=== PATIENT | female | born 1955 | race Caucasian/White ===

== ENCOUNTER 2017-07-13 10:24 | Inpatient (IN) | payer BC ==
--- NOTE | 2017-07-07 11:49 | History and Physical ---
History & Physical Date & Time of Service: Jul 07, 2017 at 11:39 Chief Complaint: Left Knee Osteoarthritis Primary Care Physician: Deloris Iniguez PA-C History of Present Illness Source: patient Aisha is a pleasant 61-year-old female who presents for preoperative evaluation prior to a left knee replacement. Patient states that they have been having pain in this knee for many years now, which has gradually worsened, it has now gotten to the point it is affecting her daily activities including walking, standing, going up and down steps. Patient has tried and failed conservative measures including previous cortisone injection, viscosupplementation, and PO NSAIDs with no relief. At this point in time, patient has failed conservative measures and would like to proceed with a left knee replacement. Past Medical/Surgical History PAST MEDICAL HISTORY: 1. Hypertension. 2. Hypercholesterolemia. PAST SURGICAL HISTORY: 1. Breast biopsy. 2. Tonsillectomy. 3. Ovarian cyst. 4. Left knee arthroscopy. 5. Cholecystectomy. Immunizations History of Influenza Vaccine: Yes Influenza Vaccine Date: Sep 23, 2008 History of Tetanus Vaccine?: Yes Tetanus Immunization Date: Dec 24, 2004 History of Pneumococcal: No History of Hepatitis B Vaccine: No Allergies Coded Allergies: Hydrocodone (Unverified Allergy, Unknown, UNKNOWN RXN, 01/03/10) Latex1 -Allergic Contact Dermititis (Unverified Allergy, Unknown, UNKNOWN , 12/24/08) Uncoded Allergies: ADHESIVE TAPE (Allergy, Unknown, UNKNOWN RXN, 12/24/08) Home Medications Scheduled Ascorbic Acid (Vitamin C *), 500 MG PO DAILY Atenolol (Tenormin), 25 MG PO HS Calcium/Vitamin D (Os-Beni 500 Plus D), 1 TAB PO DAILY Fish Oil ([place]-3), 1 CAP PO TID Multivitamin (Multivitamin), 1 TAB PO DAILY Quinapril Hcl (Accupril *), 20 MG PO DAILY Simvastatin (Zocor), 20 MG PO QPM Review of Systems Constitutional: No fever, No chills, No sweats, No weight loss, No weakness, No fatigue, No problem reported Eyes: No worsening of vision, No eye pain, No redness, No discharge, No diplopia, No problem reported ENT: No hearing loss, No unusual epistaxis, No nasal symptoms, No sore throat, No tinnitus, No dental problems, No trouble swallowing, No problem reported Respiratory: No cough, No sputum, No wheezing, No shortness of breath, No dyspnea on exertion, No dyspnea at rest, No hemoptysis, No problem reported Cardiovascular: No chest pain, No orthopnea, No PND, No edema, No claudication , No palpitations, No problem reported Abdomen: No pain, No nausea, No vomiting, No diarrhea, No constipation, No GI bleeding, No problem reported Physical Exam General Appearance: WD/WN, no apparent distress Head: normocephalic, atraumatic Eyes: normal inspection, PERRL ENT: normal ENT inspection Neck: supple Respiratory/Chest: chest non-tender, lungs clear Cardiovascular: regular rate, rhythm, no edema Abdomen/GI: normal bowel sounds, non tender Physical Exam Exam Findings Details Knee ROM L * Active ROM - Flexion: 125 degrees, Extension: 5 degrees, Factors: pain, Description: active painful range of motion. Knee ROM R * Active ROM - Flexion: 125 degrees, Extension: 5 degrees, Strength LE Normal Strength Description - Normal lower extremity: Bilateral. Knee * Inspection - Gait: antalgic. Alignment - Right: neutral, Left: neutral. Ecchymosis - Right: negative, Left: negative. Effusion - Right: mild, Left: mild. Swelling - Right: mild, Left: mild. Flexibility - Right: normal, Left: normal. Maximum tenderness - Right: medial joint line, lateral joint line, patella, Left: medial joint line, lateral joint line, patella. Patella exam - Crepitation - Right: mild, Left: mild. Patella position - Right: neutral, Left: neutral. Tilt - Right: equal, Left: equal. Diane's - lateral - Right: Positive, Left: Positive. Diane's - medial - Right: Positive, Left: Positive. Knee Comments No calf tenderness Knee Normal Inspection - Atrophy - Right: Absent, Left: Absent. Skin - Right: Normal, Left: Normal. Patella exam - Apprehension - Right: Negative, Left: Negative. Q-angle - Right: Normal, Left: Normal. Mode's - Right: Negative, Left: Negative. Posterior drawer - Right: Negative, Left: Negative. Anterior drawer - Right: Negative, Left: Negative. Valgus stress - Right: Negative, Left : Negative. Varus stress - Right: Negative, Left: Negative. Extensor lag - Right : Normal, Left: Normal. Neurovascular LE Normal Neurovascular examination including reflexes, sensation , and pulses is within normal limits. Knee X-Ray: Xrays reviewed of the left knee showing findings consistent with degenerative joint disease including joint space narrowing, subchondral sclerosis and peripheral osteophyte formation. no acute bony pathology, overall valgus alignment. Impression: degenerative joint disease of the left knee with no acute bony pathology noted. Impression Assessment and Plan Left Knee DJD Further care discussed with patient and at this point in time has failed conservative measures and would like to proceed with a left total knee replacement. Plan on discharge will be home with outpatient physical therapy. DVT prophalaxis with TEDs, SCDs and will also place on aspirin 81 mg p.o. b.i.d. for a month postop. Patient will have follow up appointment in our office two weeks post op for staple/suture removal and re-evaluation. Patient otherwise has no other questions or concerns.
[2017-07-08 13:57] VITALS: BMI 40.0
--- NOTE | 2017-07-08 14:29 | PAT Medication Instructions ---
Service Date Jul 08, 2017. Current Home Medication List Acetaminophen (Tylenol), 1,000 MG PO TID PRN for RN Arnica (Arnica Tincture), 1 DOSE TOP QAM Ascorbic Acid (Vitamin C), 500 MG PO QAM Atenolol (Tenormin), 50 MG PO QPM Fish Oil ([place]-3), 2 CAP PO BID Homeopathic Products (Arnica [place]), 2 TAB SL BD Hydrochlorothiazide (Hydrochlorothiazide), 1 TAB PO QAM Multivitamin (Multivitamin), 1 TAB PO QAM Probiotic Product (Probiotic), 1 TAB PO PRN Quinapril Hcl (Accupril), 40 MG PO QPM Simvastatin (Zocor), 40 MG PO QPM Turmeric (Curcuma Longa) (Turmeric Curcumin), 500 MG PO QAM Medication Instructions For Your Scheduled Surgery - Hold the following medications as of 07/08/17: Turmeric (Curcuma Longa) (Turmeric Curcumin), 500 MG PO QAM Fish Oil ([place]-3), 2 CAP PO BID Arnica (Arnica Tincture), 1 DOSE TOP QAM Homeopathic Products (Arnica [place]), 2 TAB SL BD - Hold the following medications 24 hours prior to surgery: Quinapril Hcl (Accupril), 40 MG PO QPM - Hold the following medications the morning of surgery: Ascorbic Acid (Vitamin C), 500 MG PO QAM Hydrochlorothiazide (Hydrochlorothiazide), 1 TAB PO QAM Multivitamin (Multivitamin), 1 TAB PO QAM Probiotic Product (Probiotic), 1 TAB PO PRN - Take the following medications the morning of surgery with a sip of water OTHERWISE NOHING TO EAT OR DRINK AFTER MIDNIGHT: Acetaminophen (Tylenol), 1,000 MG PO TID PRN (may take if needed up to 4 hours prior to surgey) - Take the following medications as scheduled the night before surgery: Atenolol (Tenormin), 50 MG PO QPM Simvastatin (Zocor), 40 MG PO QPM Acetaminophen (Tylenol), 1,000 MG PO TID PRN for RN If you have any questions please call us at [phone] or [phone] or [phone]
--- NOTE | 2017-07-08 15:13 | DIAGNOSTIC IMAGING REPORT ---
CHEST 2 VIEWS ROUTINE HISTORY: 61 years-old Female preadmission exam. COMPARISON: None available TECHNIQUE: Frontal and lateral views of the chest. FINDINGS: Calcine mediastinal nodes are seen. There is atherosclerosis of the aorta. Cardiac silhouette is within normal limits. No pneumothorax, pleural effusion or focal airspace consolidation. End plate spurring is seen throughout the spine.] Cholecystectomy clips are noted. IMPRESSION: No acute cardiopulmonary process. The above report was generated using voice recognition software. It may contain grammatical, syntax or spelling errors. Electronically signed by: Cordell Zee M.D. 07/08/2017 3:12 PM Dictated Date/Time: 07/08/2017 3:10 PM
[2017-07-08 15:28] LABS: BASO % 0.4 %; BASO ABS # 0.03 K/uL (0-0.2); COMPLETE YES; EOS % 1.5 %; HEMATOCRIT 42.1 % (37-47); IG% 0.4 %; LYMPH % 27.1 %; LYMPH ABS # 2.15 K/uL (1.2-3.4); MEAN CELL VOLUME 82.2 fL (80-100); MEAN CORPUSCULAR HEMOGLOBIN 27.3 pg (25-34); MEAN CORPUSCULAR HGB CONC 33.3 g/dl (32-36); MEAN PLATELET VOLUME 11.2 fL (7.4-10.4); MONO % 7.1 %; NEUT % 63.5 %; PLATELET COUNT 163 K/uL (130-400); RED BLOOD COUNT 5.12 M/uL (4.2-5.4); WHITE BLOOD COUNT 7.93 K/uL (4.8-10.8)
[2017-07-08 15:30] LABS: URINE APPEARANCE CLEAR (CLEAR); URINE BILIRUBIN NEG (NEG); URINE COLOR YELLOW; URINE EPITHELIAL CELL AUTO >30 /lpf (0-5); URINE NITRITE NEG (NEG); URINE PH 5.5 (4.5-7.5); URINE SPECIFIC GRAVITY 1.013 (1.000-1.030); UROBILINOGEN NEG (NEG)
[2017-07-08 15:32] LABS: MANUAL MICROSCOPIC REQUIRED? NO; REVIEW REQ? NO
[2017-07-08 15:38] LABS: PARTIAL THROMBOPLASTIN RATIO 1.1; PROTHROMBIN TIME (PATIENT) 10.6 SECONDS (9.0-12.0)
[2017-07-09 07:21] LABS: ESTIMATED AVERAGE GLUCOSE 117 mg/dl; HA1C FLAG Normal (Normal)
[2017-07-13] VITALS (7 sets, daily range): BP systolic 102–135; BP diastolic 64–84; PULSE 66–76; TEMP 36.4–36.8; O2SAT 97–99; Ht 170.2 cm; Wt 115.9 kg
[~2017-07-13] VITALS: Ht 170.2 cm; Wt 115.9 kg
[2017-07-13] MEDS: TRANEXAMIC ACID INJ 1,000 MG in SODIUM CHLORIDE 0.9% 100ML 100 ML IV SCH ×2 (06:00→06:30)
[~2017-07-13 10:24] MED LIST: ACET-1256 PO; ACETAMINOPHEN 500 MG TAB PO SCH; ARNI20TI TOP; ASCO1CAP3 PO; ATEN50TA8 PO; CEFAZOLIN 2000 MG/60 ML D5W 60 ML IV SCH; CeleBREX 200 MG CAP PO SCH; DEXAMETHASONE 4 MG TAB PO SCH; FAMOTIDINE 20 MG TAB PO SCH; GABAPENTIN 300 MG CAP PO SCH; HYDR12.55 PO; LACTATED RINGER'S 1000ML 1,000 ML IV SCH; LACTATED RINGER'S 1000ML 500 ML IV ONE; METOCLOPRAMIDE HCL 10 MG TAB PO SCH; MULT-506 PO; OMEG10007 PO; OXYCODONE HCL 10 MG TABCR (OXYCONTIN) PO SCH; PROB1TAB16 PO; QUIN40TA18 PO; ROPIVACAINE 5MG/ML 30 ML 150 MG, BUPIVACAINE/EPINEPHR 0.5% MPF 30 ML, KETOROLAC TROMETH... INFIL SCH; SIMV40TA2 PO; TURM1CAP PO; [UNRECOGNIZED DRUG - CODE] SL
[2017-07-13] MEDS ORDERED: BUPIVACAINE 0.25% 30 ML VIAL ONE (10:28)
[2017-07-13] MEDS ORDERED: BUPIVACAINE 0.5 % 5 MG/1 ML PF 10ML VIAL ONE (10:38)
--- NOTE | 2017-07-13 11:02 | History & Physical Bridge Note ---
H&P Re-Evaluation Bridge Note: I have examined the patient, reviewed the History & Physical and in the interval since the performance of the History & Physical I have noted the following changes of clinical significance: No changes noted
[2017-07-13] MEDS ORDERED: MIDAZOLAM HCL 1 MG/ML 2ML VIAL ONE ×2 (12:25)
[2017-07-13] MEDS ORDERED: FENTANYL CITRATE INJ 50 MCG/1 ML 2 ML VIAL ONE (12:25)
[2017-07-13] MEDS ORDERED: BACITRACIN 50000 UNIT VIAL ONE (12:38)
[2017-07-13] MEDS ORDERED: ORTHO JOINT ANESTHETIC ONE (12:38)
[2017-07-13] MEDS ORDERED: POVIDONE-IODINE OP SOLN 30 ML BTL ONE (12:38)
[2017-07-13] MEDS ORDERED: HYDROmorphone INJ 2 MG/ML SYR/VIAL IV PRN (13:30)
[2017-07-13] MEDS ORDERED: EpHEDrine SULFATE INJ 50 MG/ML AMP IV PRN (13:30)
[2017-07-13] MEDS ORDERED: ATROPINE SULFATE 0.1 MG/ML 5ML SYR IV PRN (13:30)
[2017-07-13] MEDS ORDERED: PHENYLEPHRINE 100MCG/ML 5ML SYR IV PRN (13:30)
[2017-07-13] MEDS ORDERED: ONDANSETRON INJ 2 MG/ML 2 ML VIAL IV PRN ×2 (13:30→15:00)
[2017-07-13] MEDS ORDERED: KETOROLAC TROMETHAMINE 30 MG/ML VIAL IV. PRN ×2 (13:30→15:00)
[2017-07-13] MEDS ORDERED: LIDOCAINE HCL 2% 2 ML VIAL (20MG/ML) ONE (13:53)
[2017-07-13] MEDS ORDERED: PROPOFOL IV EMULSION 10 MG/ML 20 ML VIAL IV ONE (13:53)
[2017-07-13] MEDS ORDERED: OXYCODONE HCL IR 5 MG TAB (IMMEDIATE RELEASE) PO PRN (15:00)
[2017-07-13] MEDS ORDERED: ZOLPIDEM TARTRATE 5 MG TAB PO PRN (15:00)
[2017-07-13] MEDS ORDERED: MoRPHine SULFATE 2 MG/ML CARP IV PRN (15:00)
[2017-07-13] MEDS ORDERED: BISACODYL 10 MG SUPP PR PRN (15:00)
[2017-07-13] MEDS ORDERED: SOD PHOSPHATE/SOD BIPHOSPHATE ENEMA 132 ML BTL PR PRN (15:00)
[2017-07-13] MEDS ORDERED: ALUMINUM/MAGNESIUM/SIMETH (MAALOX MAX) 30 ML UDC PO PRN (15:00)
[2017-07-13] MEDS ORDERED: MAGNESIUM HYDROXIDE SUSP 30 ML UDC PO PRN (15:00)
[2017-07-13] MEDS ORDERED: MoRPHine SULFATE 4 MG/ML 1 ML CARP\\VIAL IV PRN (15:30)
[2017-07-13] MEDS ORDERED: MoRPHine SULFATE 10 MG/ML CARP/VIAL IV PRN (15:30)
--- NOTE | 2017-07-13 15:36 | DIAGNOSTIC IMAGING REPORT ---
LEFT KNEE 1 OR 2 VIEWS ROUTINE CLINICAL HISTORY: Osteoarthritis. Postoperative study COMPARISON: None. DISCUSSION: There are postsurgical changes of a total left knee arthroplasty and patellar resurfacing. The femoral and tibial components appear well seated. Overlying skin steffen and surgical drains are evident. There is air within soft tissues consistent with recent surgery IMPRESSION: Postsurgical changes of a total left knee arthroplasty. Electronically signed by: Eulogio Moore M.D. 07/13/2017 3:35 PM Dictated Date/Time: 07/13/2017 3:34 PM
[2017-07-13] MEDS: D5W AND 1/2NSS + 20MEQ KCL 1,000 ML IV SCH (16:56)
--- NOTE | 2017-07-13 18:27 | [facility] Operative Report ---
Operative Report Operative Date Jul 13, 2017. Pre-Operative Diagnosis Left Knee Degenerative Joint Disease Post-Operative Diagnosis Same as preop Procedure(s) Performed Left Total Knee Arthroplasty using Kerr & Nephew journey 2 nonlocked total knee arthroplasty size 6 femur 5 tibia 11 Luann [address] Watson Care Process Manager Surgeon(s) Aman Fulton PA-C Estimated Blood Loss 5cc Findings Severe end-stage tricompartmental degenerative joint disease left knee Specimens A. Left Knee Bone and Tissue Complication(s) None Disposition Recovery Room / PACU Indications Patient still tends to conservative management including physical therapy anti- inflammatories relative rest activity modification interarticular corticosteroid and viscous supplementation injections presents for total knee Orthoplast after thorough discussion regarding risk and obligations Description of Procedure After proper prepping and draping of the left lower extremity anterior midline incision was made over the region of the extensor extensor mechanism after meticulous hemostasis was obtained and maintained in subcutaneous tissues a medial parapatellar incision was made The patella was subluxed lateralward the medial lateral gutter were cleaned from any hypertrophic synovitis and scar tissue of the distal femoral block was placed and the distal femoral osteotomy cut was made subsequently the chamfers anterior and posterior osteotomy cuts were made utilizing the 4-in-1 block the tibia was subsequently subluxed anteriorward medial and ateral meniscal remnants were excised in their entirety remnants of the anterior and posterior cruciate ligaments were excised in their entirety excellent exposure of the proximal tibia was obtained the tibial osteotomy guide was placed on the proximal tibial osteotomy cut was made once again the knee was irrigated with copious amounts of sterile saline solution the patella was subsequently everted lateralward thickened scar tissue around the patella was removed the patella was subsequently cut utilizing a freehand technique and was drilled prepared for final preparation and placement of patella socially flexion-extension gaps were checked and the equal and symmetric trials were placed to the appropriate femoral and tibial trials with poly-spacer being placed for equal flexion and extension gaps and full range of motion including extension to 0 and flexion to 140 the trial components after having been taken to recovery range of motion was subsequently removed meticulous hemostasis was obtained and maintained subsequently a knee block injection of joint cocktail including ropivacaine 0.5% 150 mg. Bupivacaine 0.5 % epinephrine 1-200,030 mL's toradol 30 mg dexamethasone 4 mg ketamine 10 mg clonidine 100 micrograms normal saline solution 30 mg was infiltrated into the soft tissues of the posterior knee medial lateral gutters and periosteal synovium special attention was paid to protect neurovascular structures at all times subsequently trial components having been removed the knee was irrigated with sterile saline solution. debris was removed the proximal tibia was subsequently prepared and was made ready for the placement of the tibial component tibial component was also cemented and tamped into position the femoral component was subsequently placed and cemented in the position the patellar component was subsequently cemented in position because hemostasis once again obtained and maintained wound having been thoroughly irrigated with debridement and debridement lavage was performed as well as a medial parapatellar incision closed with #1 Vicryl in interrupted fashion subcutaneous was closed with #2 Vicryl skin was closed with skin clips. PA-C was necessary for prepping and drapping as well as wound closure of deep fascia Sub cutaneous tissue and skin and was necessary for the case. A sterile compressive dressing was placed patient was taken to recovery in stable condition of report dictated by Walter I attest to the content of the Intraoperative Record and any orders documented therein. Any exceptions are noted below. I attest to the content of the Intraoperative Record and any orders documented therein. Any exceptions are noted below.
--- NOTE | 2017-07-13 18:28 | Anesthesiology Progress Note ---
Anesthesia Post Op Note Date & Time Jul 13, 2017 at 15:52 Vital Signs Pain Intensity: 0 Vital Signs Past 12 Hours Date Time Temp Pulse Resp B/P (MAP) Pulse Ox O2 Delivery O2 Flow Rate FiO2 07/13/17 14:59 36.1 85 18 104/61 99 Mask 10 07/13/17 11:19 36.7 73 18 128/64 97 Room Air Notes Mental Status: alert / awake / arousable, participated in evaluation Pt Amnestic to Procedure: Yes Nausea / Vomiting: adequately controlled Pain: adequately controlled Airway Patency, RR, SpO2: stable & adequate BP & HR: stable & adequate Hydration State: stable & adequate Anesthetic Complications: no major complications apparent
[2017-07-13] MEDS: DOCUSATE SODIUM 100 MG CAP PO SCH (20:43)
[2017-07-13] MEDS: ASPIRIN 81 MG ECTAB PO SCH (20:43)
[2017-07-13] MEDS: SENNA 8.6 MG TAB PO SCH (20:44)
[2017-07-13] MEDS: SIMVASTATIN 40 MG TAB PO SCH (20:44)
[2017-07-13] MEDS: OXYCODONE HCL 10 MG TABCR (OXYCONTIN) PO SCH (20:47)
[2017-07-13] MEDS: CEFAZOLIN IV 2,000 MG in DEXTROSE 5% 50ML 50 ML IV SCH (22:05)
[2017-07-13] MEDS: ACETAMINOPHEN 500 MG TAB PO SCH (22:05)
[2017-07-14] VITALS (7 sets, daily range): BP systolic 104–129; BP diastolic 68–85; PULSE 65–74; TEMP 36.5–36.9; O2SAT 95–99
[2017-07-14] MEDS: D5W AND 1/2NSS + 20MEQ KCL 1,000 ML IV SCH ×2 (03:01→13:00)
[2017-07-14] MEDS: ACETAMINOPHEN 500 MG TAB PO SCH ×3 (05:15→22:00)
[2017-07-14] MEDS: CEFAZOLIN IV 2,000 MG in DEXTROSE 5% 50ML 50 ML IV SCH (05:15)
[2017-07-14 06:58] LABS: HEMATOCRIT 33.3 % (37-47); MEAN CELL VOLUME 80.4 fL (80-100); MEAN CORPUSCULAR HEMOGLOBIN 27.5 pg (25-34); MEAN CORPUSCULAR HGB CONC 34.2 g/dl (32-36); MEAN PLATELET VOLUME 10.3 fL (7.4-10.4); PLATELET COUNT 138 K/uL (130-400); RED BLOOD COUNT 4.14 M/uL (4.2-5.4); WHITE BLOOD COUNT 15.19 K/uL (4.8-10.8)
[2017-07-14 07:07] LABS: PROTHROMBIN TIME (PATIENT) 11.1 SECONDS (9.0-12.0)
[2017-07-14 07:25] LABS: BUN/CREATININE RATIO 19.1 (10-20); CALCIUM 8.6 mg/dl (8.5-10.1); CREATININE 1.4 mg/dl (0.60-1.20); POTASSIUM 4.4 mmol/L (3.5-5.1)
--- NOTE | 2017-07-14 07:32 | Orthopedic Progress Note ---
Orthopedic Progress Note Date of Service Jul 14, 2017. Subjective Post OP Day: 1 (s/p Left TKA) Reports: feeling well, pain controlled w PO medications, Denies: complaints, chest pain, SOB, nausea / vomiting, light headedness, calf pain Objective calves soft nontender, N/V intact, capillary refill less than 2 sec., dressing C /D/I, A&O x3, toes mobile, hemovac drainage (100cc/8 hours) Date Time Temp Pulse Resp B/P (MAP) Pulse Ox O2 Delivery O2 Flow Rate FiO2 07/14/17 03:30 36.8 74 16 110/75 (87) 98 Room Air 07/13/17 23:32 36.6 74 16 102/65 (77) 98 Room Air 07/13/17 23:23 Room Air 07/13/17 19:01 36.5 66 16 135/84 (101) 98 Nasal Cannula 2.0 07/13/17 18:03 36.7 74 18 112/79 (90) 99 Nasal Cannula 2.0 07/13/17 17:00 36.8 75 16 105/70 (82) Nasal Cannula 2.0 07/13/17 16:30 Nasal Cannula 2.0 07/13/17 16:28 74 18 110/71 (84) 99 Nasal Cannula 2.0 07/13/17 16:15 Nasal Cannula 2.0 07/13/17 16:15 Nasal Cannula 2.0 07/13/17 16:00 36.4 76 18 125/77 (93) 97 Nasal Cannula 2.0 07/13/17 15:56 135/64 07/13/17 15:53 70 17 98 07/13/17 15:53 68 17 07/13/17 15:51 36.2 71 16 122/62 97 Nasal Cannula 07/13/17 15:50 122/62 07/13/17 15:48 71 12 07/13/17 15:48 69 12 96 07/13/17 15:46 114/74 07/13/17 15:43 75 16 07/13/17 15:43 72 16 98 07/13/17 15:40 108/84 07/13/17 15:38 73 12 07/13/17 15:38 72 12 98 07/13/17 15:36 117/62 8/15/17 15:33 77 18 97 07/13/17 15:33 78 18 07/13/17 15:30 113/73 07/13/17 15:28 75 14 97 07/13/17 15:28 76 14 07/13/17 15:26 126/71 07/13/17 15:23 72 14 07/13/17 15:23 72 14 97 07/13/17 15:21 105/69 07/13/17 15:18 82 20 07/13/17 15:18 83 20 98 07/13/17 15:17 113/44 07/13/17 15:13 79 16 07/13/17 15:13 78 16 99 07/13/17 15:10 100/65 07/13/17 15:08 75 18 07/13/17 15:08 71 18 100 07/13/17 15:05 122/65 07/13/17 15:03 75 17 07/13/17 15:03 77 17 100 07/13/17 15:00 103/84 07/13/17 14:59 104/61 07/13/17 14:59 36.1 85 18 104/61 99 Mask 10 07/13/17 14:58 80 14 07/13/17 14:58 78 14 98 07/13/17 11:19 36.7 73 18 128/64 97 Room Air Laboratory Results 24 Hours: Test 07/14/17 06:32 Hematocrit 33.3 % Hemoglobin 11.4 g/dL Prothromb Time International Ratio 1.0 Prothrombin Time 11.1 SECONDS Assessment & Plan Assessment: POD #1 s/p Left TKA -pt/ot -plan for d/c home with HHPT when stable -dvt proph with sakina/scd/asa Discharge Planning Discharge Planning: home with home health DVT Prophylaxis: TEDs, SCDs, ASA Therapy: Physical Therapy
--- NOTE | 2017-07-14 09:01 | Discharge Instructions ---
Discharge Instructions Date of Service Jul 14, 2017. Admission Reason for Admission: Left Knee Osteoarthritis Discharge Discharge Diagnosis / Problem: Left Total Knee Replacement Discharge Goals Goal(s): Decrease discomfort, Improve function, Increase independence Activity Recommendations Activity Limitations: as noted below Weightbearing Status: Left weightbearing (as tolerated) . Instructions / Follow-Up Instructions / Follow-Up ACTIVITY RECOMMENDATIONS: SELF CARE INSTRUCTIONS AFTER TOTAL KNEE REPLACEMENT A. You may need to continue a physical therapy program after discharge from the hospital. There are several options available to you. Your doctor will assist you in selecting the best one for you. 1. An out-patient facility 2 to 3 times a week for therapy or home therapy. 2. Continue working on all exercises taught to you in the hospital. Your goals should be to increase bending of your knee to 90 degrees and beyond and to fully straighten your knee. B. You may progress at your own pace from walking with a walker or crutches to a cane; then to no assistive devices. C. Make walking a part of your daily routine. Be up as much as comfortable with rest periods throughout the day. Rest with leg elevation is very important. Use the ice wrap frequently for the first 3-4 weeks. D. There are no restrictions on activities. You may ride in a car, shop, participate in snaker tractor driver and all social activities. E. Wear the long elastic stockings (ISHA hose) 20 hours a day for 2 weeks after surgery. They can be removed several times a day for laundering and for a bath. F. You may shower, no tub baths until cleared by your doctor. SPECIAL CARE INSTRUCTIONS: VERY IMPORTANT TO READ AND REVIEW A. There are a few signs you need to watch for after you are home. Call [facility] [place] if you notice any of the followin. Increased severe knee pain. Some pain is expected especially when you exercise. 2. Increased swelling in your leg or knee; pain or swelling of the calf muscle in either lower leg. 3. Any fluid drainage from the incision. 4. Shortness of breath or chest pain. B. Please call [facility] at if you have any concerns or questions about your operation or recovery. The doctor or his nurse will return your call promptly. C. You must take antibiotics before dental work, bladder, bowel or other surgery. Your doctor will provide you with a permanent care to carry describing this precaution. IMPORTANT: * REMEMBER TO TAKE ASPIRIN, 81 MG, TWICE DAILY FOR 4 WEEKS UNLESS OTHERWISE DIRECTED. THIS IS YOUR BLOOD THINNER. * HIGH RISK PATIENTS MAY BE PRESCRIBED A STRONGER BLOOD THINNER. THIS WILL BE PROVIDED AT DISCHARGE. * CALL IF INCREASED PAIN, REDNESS, DRAINAGE OR FEVER GREATER THAT 101. * WEAR ISHA HOSE 20 HOURS PER DAY FOR 2 WEEKS. * Prevena- This is a large suction dressing covering your incision. This will help pull any excess drainage from the wound and allow your incision to heal properly. You may shower with this if you can keep the unit outside of the shower. If any bleeding or leakage is noted please call your doctor's office. This will remain on your incision for 7 days and then should be removed. This can be done yourself or by the home nursing staff if applicable. The entire unit is disposable once removed. Once removed, keep incision clean and dry. If redness or drainage is noted, please call your surgeon. FOLLOW UP VISIT: If appointment is not already scheduled: Please call [facility] [place] to make a follow-up appointment for 2 weeks after your surgery at . Current Hospital Diet Patient's current hospital diet: Regular Diet Discharge Diet Recommended Diet: Regular Diet Procedures Procedures Performed: Left Total Knee Arthroplasty using Kerr & Nephew journey 2 nonlocked total knee arthroplasty size 6 femur 5 tibia 11 Luann 32 oval patella Pending Studies Studies pending at discharge: no Laboratory Results Hemoglobin A1c Test 07/08/17 14:38 Range/Units Estimated Average Glucose 117 mg/dl Hemoglobin A1c 5.7 H 4.5-5.6 % Medical Emergencies . Who to Call and When: Medical Emergencies: If at any time you feel your situation is an emergency, please call 911 immediately. . Non-Emergent Contact Non-Emergency issues call your: Primary Care Provider, Surgeon . "Provider Documentation" section prepared by Aman Fulton. . VTE Core Measure Inpt VTE Proph given/why not?: Other Anticoagulation (ASA 81mg po bid x 1 month ), T.E.D. Stockings, SCD's [place] Drug Monitoring Program Search Results: patient reviewed within database, no issues identified
--- NOTE | 2017-07-14 09:19 | Anesthesiology Progress Note ---
Anesthesia Post Op Note Date & Time Jul 14, 2017 at 09:18 Vital Signs Pain Intensity: 3.0 Vital Signs Past 12 Hours Date Time Temp Pulse Resp B/P (MAP) Pulse Ox O2 Delivery O2 Flow Rate FiO2 07/14/17 07:45 36.6 65 14 122/78 (93) Room Air 07/14/17 03:30 36.8 74 16 110/75 (87) 98 Room Air 07/13/17 23:32 36.6 74 16 102/65 (77) 98 Room Air 07/13/17 23:23 Room Air Notes Mental Status: alert / awake / arousable, participated in evaluation Pt Amnestic to Procedure: Yes Nausea / Vomiting: adequately controlled Pain: adequately controlled Airway Patency, RR, SpO2: stable & adequate BP & HR: stable & adequate Hydration State: stable & adequate Neuraxial Anesthesia: was administered, sensory block resolved Anesthetic Complications: no major complications apparent
[2017-07-14] MEDS: ASCORBIC ACID 500 MG TAB PO SCH (09:25)
[2017-07-14] MEDS: ASPIRIN 81 MG ECTAB PO SCH ×2 (09:25→21:58)
[2017-07-14] MEDS: DOCUSATE SODIUM 100 MG CAP PO SCH ×2 (09:25→21:59)
[2017-07-14] MEDS: PANTOprazole SOD 40 MG TAB PO SCH (09:26)
[2017-07-14] MEDS: MULTIVITAMIN TAB PO SCH (09:26)
[2017-07-14] MEDS: OXYCODONE HCL 10 MG TABCR (OXYCONTIN) PO SCH ×2 (09:28→21:56)
[2017-07-14] MEDS: SIMVASTATIN 40 MG TAB PO SCH (21:57)
[2017-07-14] MEDS: CeleBREX 200 MG CAP PO SCH (21:59)
[2017-07-14] MEDS: SENNA 8.6 MG TAB PO SCH (22:18)
[2017-07-15] MEDS: ACETAMINOPHEN 500 MG TAB PO SCH (05:13)
[2017-07-15 06:25] VITALS: BP 125/73; PULSE 73; TEMP 36.6; O2SAT 96
[2017-07-15 06:56] LABS: BUN/CREATININE RATIO 23.8 (10-20); CALCIUM 9.5 mg/dl (8.5-10.1); CREATININE 1.2 mg/dl (0.60-1.20); POTASSIUM 4.3 mmol/L (3.5-5.1)
[2017-07-15] MEDS ORDERED: ACET-24 PO (07:14)
[2017-07-15] MEDS ORDERED: CLC100 PO (07:14)
[2017-07-15] MEDS ORDERED: RXC5 PO (07:14)
[2017-07-15] MEDS ORDERED: CLB200 PO (07:14)
[2017-07-15] MEDS ORDERED: OXYSR10 PO (07:14)
[2017-07-15] MEDS ORDERED: ASPEC81 PO (07:14)
[2017-07-15] MEDS ORDERED: ONDA8TAB6 PO (07:14)
--- NOTE | 2017-07-15 07:19 | Orthopedic Progress Note ---
Orthopedic Progress Note Date of Service Jul 15, 2017. Subjective Post OP Day: 2 Reports: feeling well, calf pain, pain controlled w PO medications, Denies: complaints, chest pain, SOB, nausea / vomiting, light headedness Additional Notes: episode of calf pain this am, she thinks is related to her SAKINA stockings Objective N/V intact, capillary refill less than 2 sec., dressing C/D/I (prevena intact), A&O x3, toes mobile Date Time Temp Pulse Resp B/P (MAP) Pulse Ox O2 Delivery O2 Flow Rate FiO2 07/15/17 06:25 36.6 73 22 125/73 (90) 96 Room Air 07/14/17 23:11 36.9 69 16 116/82 (93) 95 Room Air 07/14/17 22:00 129/85 (100) 07/14/17 20:15 Room Air 07/14/17 16:16 36.7 73 18 104/68 (80) 99 Room Air 07/14/17 11:45 36.5 74 14 122/80 (94) 99 Room Air 07/14/17 09:45 97 Room Air 07/14/17 08:10 Room Air 07/14/17 07:45 36.6 65 14 122/78 (93) Room Air Assessment & Plan Assessment: POD #2 s/p Left TKA -pt/ot -plan for d/c home with HHPT when stable -dvt proph with sakina/scd/asa episode of calf pain, neg yaneli on exam. will observe. if worsens will order US Discharge Planning Discharge Planning: home with home health DVT Prophylaxis: TEDs, SCDs, ASA Therapy: Physical Therapy
[2017-07-15 07:20] VITALS: BP 122/80; PULSE 72; TEMP 36.8; O2SAT 97
[2017-07-15 07:47] VITALS: O2SAT 97
--- NOTE | 2017-07-15 08:04 | Discharge Summary ---
Orthopedic Discharge Summary Admission Date/Reason Jul 13, 2017 at 11:00 Left Knee Osteoarthritis. Discharge Date/Disposition Jul 15, 2017 Home with services Diagnosis Principal Diagnosis: left knee osteoarthritis Procedure(s) Performed Left Total Knee Arthroplasty using [employer] 2 nonlocked total knee arthroplasty size 6 femur 5 tibia 11 Luann 32 oval patella Consultations NONE Medication Reconciliation New Medications: Ondansetron Hcl (Zofran) 8 Mg Tab 8 MG PO Q8 PRN for Nausea, #20 TAB Acetaminophen (Sb Non-Aspirin Extra Stre) 500 Mg Tab 1000 MG PO Q8, #126 TAB Aspirin (Aspirin EC Low Dose) 81 Mg Ectab 81 MG PO BID for 30 Days, #60 TAB Celecoxib (Celebrex) 200 Mg Cap 200 MG PO BID for 30 Days, #60 CAP Docusate Sodium (Docusate Sodium) 100 Mg Cap 100 MG PO BID, #10 CAP Oxycodone HCl (Oxycontin) 10 Mg Tabcr 10 MG PO Q12, #20 Oxycodone HCl (Oxycodone HCl) 5 Mg Tab 5-10 MG PO Q4H PRN for Pain, #60 TAB Continued Medications: Arnica (Arnica Tincture) 20 % Tin 1 DOSE TOP QAM Ascorbic Acid (Vitamin C) 500 Mg Cap 500 MG PO QAM Atenolol (Tenormin) 50 Mg Tab 50 MG PO QPM, TAB Hydrochlorothiazide (Hydrochlorothiazide) 12.5 Mg Tab 1 TAB PO QAM for 90 Days, #90 TAB 3 Refills Multivitamin (Multivitamin) Tab 1 TAB PO QAM, TAB Probiotic Product (Probiotic) 1 Tab Tab 1 TAB PO PRN Quinapril Hcl (Accupril) 40 Mg Tab 40 MG PO QPM, TAB Simvastatin (Zocor) 40 Mg Tab 40 MG PO QPM, TAB Discontinued Medications: Acetaminophen (Tylenol) 500 Mg Tab 1000 MG PO TID PRN for RN, TAB Fish Oil ([place]-3) 1 Ea Cap 2 CAP PO BID, CAP Homeopathic Products (Arnica [place]) 1 Sub Sub 2 TAB SL BD Turmeric (Curcuma Longa) (Turmeric Curcumin) 500 Mg Cap 500 MG PO QAM Admission Physical Exam As per Admitting History & Physical. Hospital Course Patient was a same day admission after undergoing a successful left TKA. she tolerated the procedure well. Post-operatively, her activity was progressed and well tolerated. Please refer to daily progress notes and PT notes for complete details. After exam on 07/15/17, patient felt to be stable for discharge home with HHPT. Patient will f/u in the office in 2 weeks for further evaluation including x-rays and incision check, sooner if having any issues or concerns. Below are pertinent labs/studies during their hospital stay: Last Resulted CBC 07/14/17 06:32 Last Resulted BMP 07/15/17 05:26 Last Vital Signs Documentation Date Time Temp Pulse Resp B/P (MAP) Pulse Ox O2 Delivery O2 Flow Rate FiO2 07/15/17 07:47 97 Room Air 07/15/17 07:20 36.8 72 14 122/80 (94) 07/13/17 19:01 2.0 Discharge Instructions Please refer to the electronic Patient Visit Report (Discharge Instructions) for additional information.
[2017-07-15] MEDS: ASCORBIC ACID 500 MG TAB PO SCH (08:43)
[2017-07-15] MEDS: MULTIVITAMIN TAB PO SCH (08:43)
[2017-07-15] MEDS: PANTOprazole SOD 40 MG TAB PO SCH (08:43)
[2017-07-15] MEDS: OXYCODONE HCL 10 MG TABCR (OXYCONTIN) PO SCH (08:46)
[2017-07-15] MEDS: DOCUSATE SODIUM 100 MG CAP PO SCH (09:20)
[2017-07-15] MEDS: ASPIRIN 81 MG ECTAB PO SCH (09:20)
[2017-07-15] MEDS: CeleBREX 200 MG CAP PO SCH (09:20)
[2017-07-15 10:49] VITALS: BP 122/80; PULSE 72; TEMP 36.8; O2SAT 97
== END 2017-07-15 12:53 | disposition home health service (06) | DRG 470 ==
LOC: C.ACU 10:24 → C.3E 11:00 → ENRESERV 15:44
PROVIDERS: ADMIT Orthopaedic Surgery; ATTEND Orthopaedic Surgery
PROC: 0SRD0J9 Replacement of Left Knee Joint with Synthetic Substitute, Cemented, Open Approach (ICD-10-PCS; principal; 2017-07-13 12:15)
DX: M17.12 Unilateral primary osteoarthritis, left knee (principal); Z68.41 Body mass index [BMI] 40.0-44.9, adult; I10 Essential (primary) hypertension; E78.00 Pure hypercholesterolemia, unspecified; E66.01 Morbid (severe) obesity due to excess calories; F17.210 Nicotine dependence, cigarettes, uncomplicated; I34.0 Nonrheumatic mitral (valve) insufficiency; M79.606 Pain in leg, unspecified; Z79.899 Other long term (current) drug therapy